=== PATIENT | male | born 1955 | race Caucasian/White ===

== ENCOUNTER 2019-12-11 06:21 | Day surgery (SDC) | payer MEDICARE, OTHER ==
[2019-12-11] MEDS ORDERED: Lactated Ringers 1,000 ML IV SCH (07:00)
[2019-12-11] MEDS ORDERED: fentaNYL 100 MCG/2 ML SDV ONE (07:28)
[2019-12-11] MEDS ORDERED: Propofol 200 MG/20 ML SDV ONE (07:28)
[2019-12-11 09:17] VITALS: BP 110/70; PULSE 69
--- NOTE | 2019-12-11 12:55 | OR ---
PREOPERATIVE DIAGNOSIS: History of colon polyps. POSTOPERATIVE DIAGNOSIS: History of colon polyps. PROCEDURE PERFORMED: Total flexible colonoscopy. ANESTHESIA: MAC anesthesia. COMPLICATIONS: None. BLOOD LOSS: None. FINDINGS: 1. Normal total colonoscopy. 2. Fair amount of liquid stool with scattered fibrous material from the colon. This was able to be washed and suctioned effectively to visualize the mucosa. START TIME: 0840. CECUM TIME: 0843. STOP TIME: 0858. [place] CLASS PREP: 2. INDICATIONS FOR PROCEDURE: Mr. Dejesus is a 64-year-old male who has a personal history of colon polyps. He has never had colon cancer. His last colonoscopy was 5 years ago. He is here for a repeat routine surveillance. He denies any change in bowel habits or bloody or dark black stools. He has no family history of colon cancer. DETAILS OF PROCEDURE: Informed consent was obtained. The patient was brought to the procedure room and placed in left lateral decubitus position. MAC anesthesia was induced by Anesthesia colleagues. The colonoscope with the Endocuff device inserted into the rectum and advanced all the way to the cecum. The appendiceal orifice and the IC valve were photographed. The colonoscope was then slowly withdrawn. There was a fair amount of liquid stool and some scattered fibrous material, which was able to be irrigated and suctioned so that I felt the mucosa was adequately evaluated. A retroflexed view was obtained. There was no polyps found within the colon. The patient was then awoken from anesthesia by Anesthesia colleagues without incident. Recommend repeat screening colonoscopy in 5 years. RKM: 12/11/2019 09:03:13 MODL: 12/11/2019 11:37:56 /[id number]
== END 2019-12-11 10:00 | disposition home or self-care (01) ==
LOC: VM.SDS 06:21
PROVIDERS: ATTEND Student in an Organized Health Care Education/Training Program
DX: Z12.11 Encounter for screening for malignant neoplasm of colon (principal); I10 Essential (primary) hypertension; E11.9 Type 2 diabetes mellitus without complications; E03.9 Hypothyroidism, unspecified; E78.5 Hyperlipidemia, unspecified; E78.00 Pure hypercholesterolemia, unspecified; G43.909 Migraine, unspecified, not intractable, without status migrainosus; Z11.59 Encounter for screening for other viral diseases; Z79.890 Hormone replacement therapy; Z79.899 Other long term (current) drug therapy; Z86.010 Personal history of colon polyps; Z98.890 Other specified postprocedural states
CPT/HCPCS: J2704; J3010; J7120; U0002

== ENCOUNTER 2025-02-13 07:38 | Day surgery (SDC) | payer MEDICARE ==
[2025-02-13] MEDS: Lactated Ringers 1,000 ML IV SCH (07:54)
[2025-02-13] MEDS ORDERED: Propofol 200 MG/20 ML SDV ONE (09:20)
[2025-02-13] MEDS ORDERED: Midazolam 1 MG/ML 2 ML SDV ONE (09:21)
[2025-02-13] MEDS ORDERED: fentaNYL 100 MCG/2 ML SDV ONE (09:21)
[2025-02-13 10:18] VITALS: BP 149/74; PULSE 80
== END 2025-02-13 11:00 | disposition home or self-care (01) ==
LOC: VM.SDS 07:38
PROVIDERS: ATTEND Family Medicine
DX: Z12.11 Encounter for screening for malignant neoplasm of colon (principal); I10 Essential (primary) hypertension; E78.5 Hyperlipidemia, unspecified; E03.9 Hypothyroidism, unspecified; E11.9 Type 2 diabetes mellitus without complications; Z91.09 Other allergy status, other than to drugs and biological substances; Z79.899 Other long term (current) drug therapy; Z79.890 Hormone replacement therapy; Z86.0100 Personal history of colon polyps, unspecified
CPT/HCPCS: J2250; J2704; J3010; J7120